=== PATIENT | male | born 1960 | race Caucasian/White ===

== ENCOUNTER 2025-01-15 10:44 | Emergency (ER) | payer MEDICARE, OTHER, SELFPAY ==
[2025-01-15 10:48] VITALS: BP 118/63; PULSE 55; RESP 16; TEMP 36.8; O2SAT 91
--- NOTE | 2025-01-15 11:01 | CT_ITS ---
WS: [id number] CT ABDOMEN AND PELVIS NONCONTRAST HISTORY: right flank pain--suspect stone TECHNIQUE: Imaging performed through the abdomen and pelvis. Coronal and sagittal reformats are submitted. All CT scans at [facility] use at least one of these dose optimization techniques: automated exposure control; mA and/or kV adjustment per patient size (includes targeted exams where dose is matched to clinical indication); or iterative reconstruction. DLP: 742.53 mGy.cm COMPARISON: None available. Lower thorax: Lung bases are clear. Visualized heart is normal. Small hiatal hernia. Liver: Normal size liver. There are a few scattered very tiny low-attenuation masses within the liver which are too small to characterize without IV contrast. Gallbladder: Normal gallbladder. No pericholecystic fluid or cholelithiasis. No gallbladder wall thickening. Pancreas: Normal size and attenuation. Normal pancreatic duct. No pancreatitis or mass. Spleen: Normal. Adrenal glands: Normal. No mass. Right kidney: Perinephric stranding. There is very slight dilatation of the RIGHT renal pelvis and RIGHT ureter. Mild periureteral stranding. 4 mm stone in the distal RIGHT ureter. There are a few additional very tiny calcifications remaining in the RIGHT renal pelvis. Left kidney: Normal size kidney with a few very tiny nonobstructing calcifications centrally. No perinephric stranding. Normal size ureter. Aorta: Mild atherosclerosis abdominal aorta with no aneurysm. No free fluid, intraperitoneal air or significant lymphadenopathy. GI tract: No obstruction. Prior appendectomy. No colitis. Abdominal wall: Small umbilical hernia contains fat only. Pelvis: Urinary bladder is minimally distended. Prostate gland is enlarged and heterogeneous encroaching into the bladder. Central prostate gland calcifications. Fat-containing RIGHT inguinal hernia. Osseous structures: L2 retrolisthesis by [address]/CT abdomen pelvis wo con [id number] IMPRESSION: 1. Mild RIGHT perinephric stranding with very mild dilatation of the renal pel vis and ureter. Distal RIGHT ureteral 4 mm calcification. 2. Additional nonobstructing very tiny calcifications in each kidney. 3. Prior appendectomy. 4. Scattered hepatic hypodensities. These may be cysts, hemangiomas or metasta tic sites. Consider further evaluation by ultrasound to evaluate for hepatic cy sts.
--- NOTE | 2025-01-15 11:04 | ED_ITS ---
HPI - Abdominal Pain 2 General: Chief Complaint: Urogenital-Male Stated Complaint: Kidney Stones Time Seen by Provider: 01/15/25 10:55 History of Present Illness: 64-year-old male presents emergency depa rtment reporting he suspects he has a kidney stone on the right side. He started experiencing discomfort around 130 this morning that woke him up from sleep. The pain seem to slowly moved from his right lateral side down through his right groin and radiated into his testicle area. The pain was waxing and waning and variable in intensity. He had associated nausea and vomiting when it was severe. He ultimately called an ambulance due to severe pain late this morning. He was given fentanyl for discomfort. He reports he urinated once this morning and saw that it was dark. Normal stool yesterday no stool today. No fever or chills. Pain is starting to come back after the fentanyl is wearing off. He has not taken any medications at home. Last kidney stone was years ago. Relevant surgical history includes appendectomy. No symptoms above the diaphragm. Related Data Previous Rx's ?Medication ?Instructions ?Recorded hydrocodone 5 mg-acetaminophen 325 1 tab PO Q4H PRN pa in #20 tabs 01/15/25 mg tablet naproxen 250 mg tablet 250 mg PO BID pain 5 days #1 0 tabs 01/15/25 ondansetron 4 mg disintegrating 4 mg PO Q6H PRN nausea and 01/15/25 tablet vomiting #14 tabs tamsulosin 0.4 mg capsule (Flomax) 0.4 mg PO DAILY 10 days #10 caps 01/15/25 Allergies Allergy/AdvReac Type Severity Reaction Status Date / Time Alpha-Gal Allergy Unknown Verified 01/15/25 10:54 ([id number],3-Gala Review of Systems 2 General: Reports: 10 or more systems reviewed and unremarkable except in HPI and below Physical Exam 2 Const: COMMON NORMALS: no limitations, alert and well nourished EXAM LIMITATIONS: no altered mental status HENMT: COMMON NORMALS: normocephalic, atraumatic and external ears normal H EAD & SCALP: normocephalic and atraumatic EXTERNAL EAR: Yes external ears normal MOUTH: no muffled voice Eye: COMMON NORMALS: EOMs intact bilaterally, conjunctivae normal and no scleral icterus CONJUNCTIVA: Yes conjunctivae normal Neck/C-Spine: COMMON NORMALS: no JVD GENERAL: Yes normal visual inspection and Yes trachea midline Resp: COMMON NORMALS: normal respiratory effort and No use of accessory muscles Cardio: COMMON NORMALS: no JVD and regular rate RATE: regular rate GI: COMMON NORMALS: Soft to palpation and non-tender PALPATION: Yes Soft to palpation and No Guarding due to palpation present (GI) OTHER: Positive right CVA percussion tenderness. Negative left CVA percussion tenderness. Extremity: COMMON NORMALS: normal to inspection Neuro: COMMON NORMALS: moves all extremities, no focal motor deficits and no sensory deficits noted SENSORIUM/ORIENTATION: Yes alert SPEECH: speech normal Psych: COMMON NORMALS: mental status grossly normal, Normal thought process present, cooperative, normal affect and speech normal SPEECH: Yes normal speech THOUGHT PROCESS: Normal thought process present Skin: COMMON NORMALS: no rashes or lesions noted, turgor normal and no jaundice GENERAL SKIN EXAM: no rashes or lesions noted and turgor normal Course 2 Vital Signs: Vital signs: Vital Signs Temperature 98.3 F 01/15/25 10:48 Pulse Rate 55 L 01/15/25 10:48 Respiratory Rate 18 01/15/25 11:23 Blood Pressure 118/63 01/15/25 11:17 Pulse Oximetry 93 01/15/25 12:00 Oxygen Delivery Me thod Room Air 01/15/25 10:48 MDM - Abdominal Pain Medical Decision Making Right-sided CVA percussion tenderness along with the story that is highly suggestive of acute ureterolithiasis with renal colic. BMP, UA, CT, medications for comfort have been ordered. Update Patient's pain became severe shortly after my history and examination. Medications were administered. CT scan of the abdomen and pelvis without contrast was obtained. I have reviewed the images. There is some hydroureter and an approixmately 3 mm stone in the distal right ureter near the opening to the bladder. The UA does not show any signs of infection. The BMP shows a creatinine of 1.2 but there is no comparison to determine trend. Update 1210pm Pain well controlled after meds, can hardly feel it now. Pt can d/c with flomax, naproxen, norco, zofran, urine strainer, and f/u urology in 5 days if no improvement. Medical Records I reviewed the patient's medical records. Lab Data I reviewed the patient's lab results. 01/15/25 11:11 Labs/Radiology: Radiology Impressions Abdomen/Pelvis CT 01/15/25 11:01 IMPRESSION: 1. Mild RIGHT perinephric stranding with very mild dilatation of the renal pelvis and ureter. Distal RIGHT ureteral 4 mm calcification. 2. Additional nonobstructing very tiny calcifications in each kidney. 3. Prior appendectomy. 4. Scattered hepatic hypodensities. These may be cysts, hemangiomas or metastatic sites. Consider further evaluation by ultrasound to evaluate for hepatic cysts. Laboratory Results Sodium 142 mmol/L (136-145) 01/15/25 11:11 Potassium 3.8 mmol/L (3.5-5.1) 01/15/25 11:11 Chloride 104 mmol/L (98-107) 01/15/25 11:11 Carbon Dioxide 27 mmol/L (22-29) 01/15/25 11:11 Anion Gap 14.8 (5-19) 01/15/25 11:11 BUN 17 mg/dL (8-23) 01/15/25 11:11 Creatinine 1.2 mg/dL (0.7-1.2) 01/15/25 11:11 GFR Calculation 60.8 mL/min (90-130) L 01/15/25 11:11 Glucose 153 mg/dL (65-115) H 01/15/25 11:11 Calculated Osmolality 299 mOsm/kg (285-295) H 01/15/25 11:11 Calcium 10.2 mg/dL (8.5-10.5) 01/15/25 11:11 Urine Color Yellow (Yellow) 01/15/25 11:09 Urine Appearance Clear (CLEAR) 01/15/25 11:09 Urine pH >=9.0 (5-7) A 01/15/25 11:09 Ur Specific Ericson 1.023 (1.005-1.030) 01/15/25 11:09 Urine Protein 1+ (Negative) A 01/15/25 11:09 Urine Glucose (UA) Negative (Normal) 01/15/25 11:09 Urine Ketones 1+ (Negative) H 01/15/25 11:09 Urine Blood Negative (Negative) 01/15/25 11:09 Urine Nitrate Negative (Negative) 01/15/25 11:09 Urine Bilirubin Negative (Negative) 01/15/25 11:09 Urine Urobilinogen 1.0 mg/dL (Negative) 01/15/25 11:09 Ur Leukocyte Esterase Negative (Negative) 01/15/25 11:09 Urine RBC 3-5 /hpf (0-2) 01/15/25 11:09 Urine WBC 0-5 /hpf (0-5) 01/15/25 11:09 Ur Squamous Epith Cells 0-5 /hpf (0-5) 01/15/25 11:09 Amorphous Sediment Not Reportable 01/15/25 11:09 Urine Bacteria None seen /hpf (NONE) 01/15/25 11:09 Hyaline Casts 0.40 /lpf 01/15/25 11:09 All radiology interpretation(s) finalized by discharge Discharge Plan Discharge Patient Disposition: Home Clinical Impression: Ureterolithiasis Condition: Stable Prescriptions: New tamsulosin [Flomax] 0.4 mg capsule 0.4 mg PO DAILY 10 Days Qty: 10 0RF hydrocodone-acetaminophen 5-325 mg tablet 1 tab PO Q4H PRN (Reason: pain) Qty: 20 0RF naproxen 250 mg tablet 250 mg PO BID 5 Days Qty: 10 0RF ondansetron 4 mg tablet,disintegrating 4 mg PO Q6H PRN (Reason: nausea and vomiting) Qty: 14 0RF Discharge Orders: Discharge ED (Routine); Ordered 01/15/25 Ordered By: Per Maldonado Discharge Diet: Advance as tolerated Discharge Activity: Resume usual activity Patient Instructions: Kidney Stones (ED), How to Strain Your Urine (ED), Opioid Safety, Pain Management Activity Restrictions/Additional Instructions: If you are still experiencing symptoms after 5 days call to get an appointment with: [facility] at [address] [place] [id number] Diagnosis: Distal right-sided ureterolithiasis with renal colic. Medications: - Naproxen: Take as prescribed for pain. NSAIDs are the preferred first-line therapy for renal colic, providing effective pain relief and reducing the need for rescue analgesia compared to opioids or acetaminophen, as supported by the Society for [employer] Emergency [employer] and multiple meta-analyses.[1] https://pubmed.ncbi.nlm.nih.gov/40954471 [2] https://pubmed.ncbi.nlm.nih.gov/55738582 [3] https:/ /pubmed.ncbi.nlm.nih.gov/57617123 [4] https://pubmed.ncbi.nlm.nih.gov/56495148 - Hydrocodone-acetaminophen (Bly): Use only as needed for breakthrough pain not controlled by NSAIDs. Opioids should be minimized due to higher rates of adverse events and risk of dependency.[1] https://pubmed.ncbi.nlm.nih.gov/73565906 [2] https://pubmed.ncbi.nlm.nih.gov/89658962 [5] https:/ /pubmed.ncbi.nlm.nih.gov/61037931 [4] https://pubmed.ncbi.nlm.nih.gov/83155582 - Ondansetron (Zofran): Take as prescribed for nausea or vomiting. - Tamsulosin (Flomax): Take 0.4 mg once daily. Tamsulosin is recommended for medical expulsive therapy in distal ureteral stones, especially for stones >5 mm, as it increases the rate of stone passage and reduces colic episodes without increasing adverse events.[6] https://pubmed.ncbi.nlm.nih.gov/44907874 [7] https://pubmed.ncbi.nlm.nih.gov/57639817 Instructions: - Maintain adequate oral hydration unless otherwise contraindicated. - Strain urine to capture the stone for analysis. - Monitor for signs of complications: fever, chills, persistent vomiting, inability to tolerate fluids, severe or worsening pain, or decreased urine output. Seek immediate medical attention if these occur. - Avoid NSAIDs if history of peptic ulcer disease, gastrointestinal bleeding, or significant renal dysfunction. - Use opioids sparingly and only as directed. - Common side effects of tamsulosin include dizziness and orthostatic hypotension; rise slowly from sitting or lying positions. - Follow up with Urology in 5?7 days or sooner if symptoms do not improve or worsen. Diet and Activity: - Resume normal activities as tolerated. - No specific dietary restrictions unless otherwise instructed. When to Return to the Emergency Department: - Fever >38?C (100.4?F) - Intractable pain or vomiting - Signs of urinary tract infection (burning, urgency, foul-smelling urine) - Inability to urinate Print Language: Romanian Coding Level of Care Code ED Order Taker for Faina Bowser
[2025-01-15 11:17] VITALS: BP 118/63; O2SAT 95
[2025-01-15 11:23] VITALS: RESP 18
[2025-01-15] MEDS: ketorolac 30 mg/mL INJ 15 MG IVP (11:23)
[2025-01-15] MEDS: ondansetron 2 mg/ML SDV 2 mL 4 MG IVP (11:23)
[2025-01-15] MEDS: acetaminophen 500 mg Tablet 1000 MG PO (11:23)
[2025-01-15] MEDS: morphine 4 mg/mL SDV 1 mL IVP (11:23)
[2025-01-15 11:29] LABS: Bilirubin Urine Negative (Negative); Blood Urine Negative (Negative); Glucose Urine UA Negative (Normal); Ketones Urine 1+ (Negative); Leukocyte Esterase Urine Negative (Negative); Nitrate Urine Negative (Negative); Protein Urine 1+ (Negative); Specific Gravity, Urine 1.023 (1.005-1.030); Urine Appearance Clear (CLEAR); Urine Color Yellow (Yellow); pH Urine >=9.0 (5-7)
[2025-01-15 11:35] LABS: Add Urine Microscopic? YES; Bacteria Urine None Seen /hpf; Squamous Epithelial Cell Urine 0-5 /hpf (0-5); WBC Urine 0-5 /hpf (0-5)
[2025-01-15 11:41] LABS: Anion Gap 14.8 (5-19); Blood Urea Nitrogen 17 mg/dL (8-23); Calcium 10.2 mg/dL (8.5-10.5); Carbon Dioxide 27 mmol/L (22-29); Chloride 104 mmol/L (98-107); Glomerular Filtration Rate 60.8 mL/min (90-130); Glucose 153 mg/dL (65-115); Osmolality Calculated 299 mOsm/kg (285-295); Potassium 3.8 mmol/L (3.5-5.1); Sodium 142 mmol/L (136-145)
[2025-01-15 12:00] VITALS: O2SAT 93
[2025-01-15 12:21] VITALS: BP 159/100; PULSE 63; RESP 16; O2SAT 90
== END 2025-01-15 12:24 | disposition home or self-care (01) ==
PROVIDERS: Emergency Provider Emergency Medicine; PCP Nurse Practitioner Family
DX: N20.1 Calculus of ureter (principal)
CPT/HCPCS: 36415; 74176; 80048; 81001; 96374; 96375; 99285; J1885; J2270; J2405; J9999